=== PATIENT | male | born 1980 | race Hispanic/Latino ===

== ENCOUNTER 2021-05-14 23:55 | Emergency (ER) | payer BC ==
--- OUTSIDE RECORDS SUMMARY | 2021-05-14 23:57 | XMS REPORT | Continuity of Care Document ---
:1980 Author Organization [facility] t Address [address] [place] [address] [address]. [address] [place] [address] Care Team Providers Name Role Phone Adolfo Inman Attending Clinician Unavailable STORM Attending Clinician Unavailable MD ADOLFO INMAN Attending Clinician Unavailable DUARTE Attending Clinician Unavailable Adolfo Inman Admitting Clinician Unavailable STORM Admitting Clinician Unavailable MD ADOLFO INMAN Admitting Clinician Unavailable UNDEFINED Admitting Clinician Unavailable Payers Payer Name Policy Type Policy Number Effective Date Expiration Date S ource Problems This patient has no known problems. Allergies, Adverse Reactions, Alerts Allergy Allergy Status Severity Reaction(s) Onset Inactive Treating Comm ents Source Name Type Date Date Clinician No Known DA Active U [facility] Allergie 10-16 Clear s 00:00: Davis [address] [place] [address] Medications This patient has no known medications. Procedures This patient has no known procedures. Encounters Start End Encounter Admission Attending Care Care Encounter Source Date/Time Date/Time Type Type Clinicians Facility Department ID 2019-09-04 Inpatient Gist, [facility] [id number] [facility] 07:30:00 Ericka [id number] [facility] 2019-09-03 Inpatient EL Gist, [facility] SURG [id number] [facility] 13:00:00 Ericka [facility] 2020-06-18 2020-06-18 Outpatient GIST, [facility] [id number] [place] 00:00:00 00:00:00 ERICKA [facility] 2020-04-16 2020-04-16 Outpatient GIST, [facility] [id number] [place] 00:00:00 00:00:00 ERICKA [address] 2020-02-13 2020-02-13 Outpatient GIST, [facility] [id number] [place] 00:00:00 00:00:00 ERICKA [address] 2020-01-04 2020-01-04 Outpatient GIST, [place] [id number] [place] 00:00:00 00:00:00 ERICKA [address] 2019-12-31 2019-12-31 Outpatient GIST, [facility] [id number] [place] 00:00:00 00:00:00 ERICKA [address] 2019-09-04 2019-09-04 Outpatient Gist, [facility] LABO [id number] [facility] 18:21:00 18:21:00 Ericka [id number] [facility] 2019-08-28 2019-08-28 Outpatient GIST, [facility] [id number] [place] 00:00:00 00:00:00 ERICKA [address] 2019-08-13 2019-08-13 Outpatient GIST, [facility] [id number] [place] 00:00:00 00:00:00 ERICKA [address] 2019-04-17 2019-04-17 Outpatient DUARTE, KOLTON [facility] [id number] [place] 00:00:00 00:00:[address] 2019-04-17 2019-04-17 Outpatient DUARTE, K[place] [facility] [id number] [place] 00:00:00 00:00:[address] Results Test Description Test Time Test Comments Results Result Comments Source SARS-CoV-2 (COVID-19) RNA [Presence] in Respiratory sp ecimen by 2019-12-31 21:22:12 IFEANYI with probe detection Test Item Value Reference Range Interpretation Comme nts SARS-CoV-2 (COVID-19) RNA [Presence] in Respiratory Not detected No t-Detected specimen by IFEANYI with probe detection (test code = 21286-1) - XR SPINE 1 V SPEC [id number] 10:32:00 Patient Name: JULIO CRZU Unit No: [id number] EXAMS: CPT CODE: [id number] XR SPINE 1 V SPEC LEVEL 53357 3 LATERAL INTRAOPERATIVE VIEWS OF THE LUMBAR SPINE Film 1: Markers overlies the soft tissues posterior to L5-S1. Film 2: No problem loss the posterior elements at L5. Film 3: Metal probe overlies the L5 pedicle. at 1032 Reported and signed by: Hannah De Leon MD CC: Ericka Inman MD Technologist: JOSEPH GE (RT.R) [facility] NAME: JULIO CRUZ [address] [facility] PHYS: Ericka Amado MD : 1980 AGE: 39 SEX: M [place] [address] LOC: Y.DSU PHONE #: [phone] EXAM DATE: 09/04/2019 STATUS: [facility] FAX #: [phone] RAD #: D/C DT PAGE 1 Signed Report Patient Name: JULIO CRUZ Unit No: [id number] EXAMS: CPT CODE: [id number] XR SPINE 1 V SPEC LEVEL 21681 <Continued> Transcribed D/ (1032) t.SDR.GVG [facility] NAME: JULIO CRUZ [address] [facility] PHYS: Ericka Amado MD : 1980 AGE: 39 SEX: M [place] [address] LOC: Y.DSU PHONE #: [phone] EXAM DATE: 09/04/2019 STATUS: [facility] FAX #: [phone] RAD #: D/C DT PAGE 2 Signed Report- XR SPINE 1 V SPEC [id number] 10:32:00 Patient Name: JULIO CRUZ Unit No: [id number] EXAMS: CPT CODE: [id number] XR SPINE 1 V SPEC LEVEL 81021 3 LATERAL INTRAOPERATIVE VIEWS OF THE LUMBAR SPINE Film 1: Markers overlies the soft tissues posterior to L5-S1. Film 2: No problem loss the posterior elements at L5. Film 3: Metal probe overlies the L5 pedicle. at 1032 Reported and signed by: Hannah De Leon MD CC: Ericka Inman MD Technologist: EL TUTTLE RT(R) [facility] NAME: JULIO CRUZ [address] [facility] PHYS: Ericka Amado MD : 1980 AGE: 39 SEX: M [place] [address] LOC: Y.DSU PHONE #: [phone] EXAM DATE: 09/04/2019 STATUS: [facility] FAX #: [phone] RAD #: D/C DT PAGE 1 Signed Report Patient Name: JULIO CRUZ Unit No: [id number] EXAMS: CPT CODE: [id number] XR SPINE 1 V SPEC LEVEL 73502 <Continued> Transcribed D/ (1032) t.SDR.[facility] NAME: CRUZMATT BrownMO Kalani [address] [facility] PHYS: Ericka Amado MD : 1980 AGE: 39 SEX: M [place] [address] LOC: Y.DSU PHONE #: [phone] EXAM DATE: 09/04/2019 STATUS: [facility] FAX #: [phone] RAD #: D/C DT PAGE 2 Signed Report- XR SPINE 1 V SPEC [id number] 10:32:00 Patient Name: JULIO CRUZ Unit No: [id number] EXAMS: CPT CODE: [id number] XR SPINE 1 V SPEC LEVEL 12191 3 LATERAL INTRAOPERATIVE VIEWS OF THE LUMBAR SPINE Film 1: Markers overlies the soft tissues posterior to L5-S1. Film 2: No problem loss the posterior elements at L5. Film 3: Metal probe overlies the L5 pedicle. at 1032 Reported and signed by: Hannah De Leon MD CC: Ericka Inman MD Technologist: EL TUTTLE RT(R) Transcribed D/ (1032) [facility]: JULIO CRUZ [address] [facility] PHYS: STORMA Ericka Woodson MD : 1980 AGE: 39 SEX: M [place] [address] LOC: VIRA PHONE #: [phone] EXAM DATE: 09/04/2019 STATUS: [facility] FAX #: [phone] RAD #: D/C DT PAGE 1 Signed Report Patient Name: JULIO CRUZ Unit No: [id number] EXAMS: CPT CODE: [id number] XR SPINE 1 V SPEC LEVEL 88839 <Continued> Orig Print D/T: S: 09/05/2019 (1035) [facility] NAME: JULIO CRUZ [address] [facility] PHYS: Ericka Amado MD : 1980 AGE: 39 SEX: M [place] [address] LOC: VIRA PHONE #: [phone] EXAM DATE: 09/04/2019 STATUS: [facility] FAX #: [phone] RAD #: D/C DT PAGE 2 Signed Report
[2021-05-15 02:52] LABS: Absolute Lymphocytes (CBC) 3.2 K/uL (0.7-4.9); Hematocrit 41.5 % (39.6-49.0); MPV 8.5 fL (7.6-11.3); RBC Red Blood Cell Count 4.84 M/uL (4.33-5.43)
[2021-05-15 02:53] LABS: Protime INR 0.96
[2021-05-15 03:19] LABS: ALT/SGPT 65 U/L (12-78); AST/SGOT 30 U/L (15-37); Albumin 3.7 g/dL (3.4-5.0); Alkaline Phosphatase 59 U/L (45-117); BUN Blood Urea Nitrogen 18 mg/dL (7-18); Bicarbonate 25 mmol/L (21-32); Bilirubin Direct < 0.1 mg/dL (0-0.2); Bilirubin Total 0.7 mg/dL (0.2-1.0); Glucose Level 145 mg/dL (74-106); Magnesium 2.5 mg/dL (1.8-2.4); NT PRO-BNP 11 pg/mL (<125); Potassium 3.5 mmol/L (3.5-5.1); Protein, Total 7.4 g/dL (6.4-8.2); Sodium Level 141 mmol/L (136-145); Troponin (Emerg Dept Use Only) < 0.02 ng/mL (0.0-0.045)
--- NOTE | 2021-05-15 07:11 | ER ---
Nurse's Notes [facility] Name: Mathew Palmer Age: 40 yrs Sex: Male : 1980 Arrival Date: 05/14/2021 Time: 23:58 Bed Treatment Private MD: Diagnosis: Chest pain, unspecified;Headache Presentation: 05/15 01:47 Chief complaint: Patient states: he has been having chest pain for months tried to make bb appt with optical mechanic apprentice who told him to go to the ED pain has been worse the last few days. Coronavirus screen: At this time, the client does not indicate any symptoms associated with coronavirus-19. Ebola Screen: No symptoms or risks identified at this time. Initial Sepsis Screen: Does the patient meet any 2 criteria? No. Patient's initial sepsis screen is negative. Does the patient have a suspected source of infection? No. Patient's initial sepsis screen is negative. Risk Assessment: Do you want to hurt yourself or someone else? Patient reports no desire to harm self or others. Onset of symptoms is unknown. 01:47 Method Of Arrival: Ambulatory bb 01:47 Acuity: LONI 3 bb Triage Assessment: 01:47 General: Appears in no apparent distress. Behavior is calm, cooperative. Pain: bb Complains of pain in chest Pain currently is 4 out of 10 on a pain scale. Neuro: Level of Consciousness is awake, alert, obeys commands, Oriented to person, place, time, situation. Cardiovascular: Reports chest pain, Capillary refill < 3 seconds Patient's skin is warm and dry. Respiratory: Respiratory effort is even, unlabored, Respiratory pattern is regular. GI: No signs and/or symptoms were reported involving the gastrointestinal system. Derm: Skin is pink, warm \\T\\ dry. Musculoskeletal: Circulation, motion, and sensation intact. Historical: - PMHx: 07:44 chronic back pain; Headaches; al4 - Immunization history:: Adult Immunizations up to date, Client reports having NOT received the Covid vaccine. - Social history:: Smoking status: Reported history of juuling and/or vaping. Screenin:32 Abuse screen: Denies threats or abuse. Nutritional screening: No deficits noted. bb Tuberculosis screening: No symptoms or risk factors identified. Fall Risk None identified. Assessment: 02:32 Reassessment: No changes from previously documented assessment. Patient is alert, bb oriented x 3, equal unlabored respirations, skin warm/dry/pink. see triage assessment. 03:45 Reassessment: Patient is alert, oriented x 3, equal unlabored respirations, skin bb warm/dry/pink. 07:40 Pain: Pain does not radiate. Pain currently is 4 out of 10 on a pain scale. Quality of al4 pain is described as "tightness" Pain began gradually. 07:41 Reassessment: pt alert and oriented. pt states his pain is better than it was when he al4 came in and is currently at a 4/10. Patient was educated on discharge instructions, follow up, and diagnosis. patient states physician came to bedside and answered all questions. 07:47 Reassessment: initial AM assessment done by ANIL Alfaro. Discharged by ANIL Rojas. al4 Vital Signs: 01:47 BP 121 / 91; Pulse 72; Resp 16 S; Temp 98.2(O); Pulse Ox 100% on R/A; Weight 106.59 kg bb (R); Height 5 ft. 9 in. (175.26 cm) (R); Pain 4/10; 03:45 BP 119 / 76; Pulse 75; Resp 16 S; Temp 99.8(O); bb 07:24 BP 112 / 79; Pulse 67; Resp 18 S; Pulse Ox 97% on R/A; al4 01:47 Body Mass Index 34.70 (106.59 kg, 175.26 cm) ED Course: 05/14 23:58 Patient arrived in ED. ja2 05/15 01:47 Arm band placed on. bb 01:49 Triage completed. bb 02:31 Initial lab(s) drawn, by ne, sent to lab. EKG done, by ED staff. Inserted saline lock: bb 20 gauge in left hand, using aseptic technique. Blood collected. 02:32 Patient has correct armband on for positive identification. bb 02:32 Patient maintains SpO2 saturation greater than 95% on room air. bb 03:02 XRAY Chest (1 view) In Process Unspecified. EDMS 03:42 Cain Escobar MD is Attending Physician. 7 04:37 Inserted saline lock: 22 gauge in left forearm, using aseptic technique. ds4 05:11 CT Chest For PE Angio In Process Unspecified. EDMS 05:11 Head Brain Wo Cont CT In Process Unspecified. EDMS 07:30 Pulse ox on. NIBP on. al4 07:43 No provider procedures requiring assistance completed. IV discontinued, intact, al4 bleeding controlled, No redness/swelling at site. Pressure dressing applied. Administered Medications: No medications were administered Outcome: 07:10 Discharge ordered by . [facility] 07:43 Discharged to home ambulatory. al4 07:43 Condition: stable 07:43 Discharge instructions given to patient, family, Instructed on discharge instructions, follow up and referral plans. Demonstrated understanding of instructions, follow-up care. 07:49 Patient left the ED. al4 Signatures: Dispatcher [employer] Darlin Whiteside RN RN Serge Campos 4 Cain Escobar MD MD [facility] Yanely Burr Alexis al4 Corrections: (The following items were deleted from the chart) 07:48 07:46 Pain: Pain does not radiate. Pain began gradually, al4 al4
--- NOTE | 2021-05-15 07:11 | EDPHYS ---
[facility] Name: Mathew Palmer Age: 40 yrs Sex: Male : 1980 Arrival Date: 05/14/2021 Time: 23:58 Bed Treatment Private MD: ED Physician Cain Escobar HPI: 05/15 04:10 This 40 yrs old Male presents to ER via Ambulatory with complaints of Chest mh7 Pain, Numbness Of Arm, Headache. 04:12 The patient or guardian reports chest pain that is located primarily in the substernal mh7 area. The pain radiates to back. 04:13 Associated signs and symptoms: Pertinent positives: headache, Pertinent negatives: mh7 abdominal pain, cough, diaphoresis, dizziness, lower extremity pain, lower extremity swelling, lightheadedness, nausea, near syncope, palpitations, recent travel, shortness of breath, syncope, vomiting. The chest pain is described as a heaviness. Duration: The patient or guardian reports multiple episodes, that are intermittent, that wax and wane, with no pattern. Modifying factors: The symptoms are alleviated by nothing. the symptoms are aggravated by nothing. Severity of pain: At its worst the pain was moderate 3 day(s) ago, in the emergency department the pain has improved moderately. Historical: - PMHx: 07:44 chronic back pain; Headaches; al4 - Immunization history:: Adult Immunizations up to date, Client reports having NOT received the Covid vaccine. - Social history:: Smoking status: Reported history of juuling and/or vaping. ROS: 04:13 Constitutional: Negative for fever, chills, and weight loss, Eyes: Negative for injury, mh7 pain, redness, and discharge, ENT: Negative for injury, pain, and discharge, Neck: Negative for injury, pain, and swelling, Respiratory: Negative for shortness of breath, cough, wheezing, and pleuritic chest pain, Abdomen/GI: Negative for abdominal pain, nausea, vomiting, diarrhea, and constipation, : Negative for injury, bleeding, discharge, and swelling, MS/Extremity: Negative for injury and deformity, Skin: Negative for injury, rash, and discoloration, Psych: Negative for depression, anxiety, suicide ideation, homicidal ideation, and hallucinations. 04:13 Allergy/Immunology: Negative for hives, rash, and allergies, Endocrine: Negative for neck swelling, polydipsia, polyuria, polyphagia, and marked weight changes, Hematologic/Lymphatic: Negative for swollen nodes, abnormal bleeding, and unusual bruising. 04:13 Neuro: Negative for altered mental status, dizziness, gait disturbance, hearing loss, loss of consciousness, seizure activity, speech changes, syncope, near syncope, tinnitus, tremor, visual changes, weakness. Exam: 04:13 Constitutional: This is a well developed, well nourished patient who is awake, alert, mh7 and in no acute distress. Head/Face: Normocephalic, atraumatic. Eyes: Pupils equal round and reactive to light, extra-ocular motions intact. Lids and lashes normal. Conjunctiva and sclera are non-icteric and not injected. Cornea within normal limits. Periorbital areas with no swelling, redness, or edema. Neck: Trachea midline, no thyromegaly or masses palpated, and no cervical lymphadenopathy. Supple, full range of motion without nuchal rigidity, or vertebral point tenderness. No Meningismus. Chest/axilla: Normal chest wall appearance and motion. Nontender with no deformity. No lesions are appreciated. Cardiovascular: Regular rate and rhythm with a normal S1 and S2. No gallops, murmurs, or rubs. Normal PMI, no JVD. No pulse deficits. Respiratory: Lungs have equal breath sounds bilaterally, clear to auscultation and percussion. No rales, rhonchi or wheezes noted. No increased work of breathing, no retractions or nasal flaring. Abdomen/GI: Soft, non-tender, with normal bowel sounds. No distension or tympany. No guarding or rebound. No evidence of tenderness throughout. Back: No spinal tenderness. No costovertebral tenderness. Full range of motion. Skin: Warm, dry with normal turgor. Normal color with no rashes, no lesions, and no evidence of cellulitis. MS/ Extremity: Pulses equal, no cyanosis. Neurovascular intact. Full, normal range of motion. Neuro: Awake and alert, GCS 15, oriented to person, place, time, and situation. Cranial nerves II-XII grossly intact. Motor strength 5/5 in all extremities. Sensory grossly intact. Cerebellar exam normal. Normal gait. Psych: Awake, alert, with orientation to person, place and time. Behavior, mood, and affect are within normal limits. Vital Signs: 01:47 BP 121 / 91; Pulse 72; Resp 16 S; Temp 98.2(O); Pulse Ox 100% on R/A; Weight 106.59 kg bb (R); Height 5 ft. 9 in. (175.26 cm) (R); Pain 4/10; 03:45 BP 119 / 76; Pulse 75; Resp 16 S; Temp 99.8(O); bb 07:24 BP 112 / 79; Pulse 67; Resp 18 S; Pulse Ox 97% on R/A; al4 01:47 Body Mass Index 34.70 (106.59 kg, 175.26 cm) bb MDM: 07:08 Differential diagnosis: abnormal EKG, acute myocardial infarction, acute pericarditis, mh7 anxiety, coronary artery disease chest wall pain, congestive heart failure costochondritis, esophagitis, gastritis, gastroesophageal reflux disease (GERD), peptic ulcer disease, pericarditis, pneumonia, pneumothorax, pulmonary embolus, stable angina, thoracic aortic disection, unstable angina. HEART Score: History: Slightly Suspicious (0), ECG: Non specific repolarization disturbance / LBTB / PM (1), Age: < or = 45 years (0), Risk Factors: No Risk Factors Known (0), Troponin: < or = 1 x Normal Limit (0), Total Score = 1. Data reviewed: vital signs, nurses notes, lab test result(s), cardiac enzymes, CBC, electrolytes, EKG, radiologic studies, CT scan, plain films. Data interpreted: Pulse oximetry: on room air is 100 %. Interpretation: normal. Counseling: I had a detailed discussion with the patient and/or guardian regarding: the historical points, exam findings, and any diagnostic results supporting the discharge/admit diagnosis, lab results, radiology results, the need for outpatient follow up, to return to the emergency department if symptoms worsen or persist or if there are any questions or concerns that arise at home. Response to treatment: the patient's symptoms have resolved after treatment, the patient's blood pressure is in an acceptable range, mental status has returned to baseline, the patient no longer shows bradycardia, the patient is not short of breath, the patient is not tachycardic, the patient's pain is gone, the patient's temperature has normalized. 07:10 Patient medically screened. [facility] 05/15 02:30 Order name: Basic Metabolic Panel; Complete Time: 03:43 05/15 02:30 Order name: CBC with Diff; Complete Time: 03:43 05/15 02:30 Order name: LFT's; Complete Time: 03:43 05/15 02:30 Order name: Magnesium; Complete Time: 03:43 05/15 02:30 Order name: NT PRO-BNP; Complete Time: 03:43 05/15 02:30 Order name: PT-INR; Complete Time: 03:43 05/15 02:30 Order name: Troponin (emerg Dept Use Only); Complete Time: 03:43 05/15 02:30 Order name: XRAY Chest (1 view) 05/15 02:30 Order name: EKG; Complete Time: 02:31 05/15 04:10 Order name: CT Chest For PE Angio [facility] 05/15 04:10 Order name: CPK; Complete Time: 04:59 [facility] 05/15 04:11 Order name: Head Brain Wo Cont CT [facility] 05/15 05:34 Order name: Troponin (emerg Dept Use Only) [facility] 05/15 05:35 Order name: Troponin (Emerg Dept Use Only); Complete Time: 07:08 [facility]DA[facility] 05/15 02:30 Order name: EKG - Nurse/Tech; Complete Time: 02:30 05/15 02:30 Order name: IV Saline Lock; Complete Time: 02:30 05/15 02:30 Order name: Labs collected and sent; Complete Time: 02:31 05/15 02:30 Order name: O2 Per Protocol; Complete Time: 02:31 05/15 02:30 Order name: O2 Sat Monitoring; Complete Time: 02:31 bb Administered Medications: No medications were administered Disposition Summary: 05/15/21 07:10 Discharge Ordered Location: Home [facility] Problem: new [facility] Symptoms: have improved [facility] Condition: Stable [facility] Diagnosis - Chest pain, unspecified mh7 - Headache mh7 Followup: [facility] - With: Private Physician - When: 1 - 2 days - Reason: Worsening of condition, Recheck today's complaints, Continuance of care, Re-evaluation by your physician Discharge Instructions: - Discharge Summary Sheet 7 - General Headache Without Cause mh7 - Nonspecific Chest Pain, Adult, [id number] [facility] Forms: - Medication Reconciliation Form [facility] - Thank You Letter [facility] - Antibiotic Education [facility] - Prescription Opioid Use [facility] Signatures: Dispatcher [employer] Darlin Whiteside, ANIL RN Cain Santacruz MD MD [facility] Emil Peters
[2021-05-15 07:58] VITALS: TEMP 99.8
[2021-05-15 07:59] VITALS: BP 112/79; O2SAT 97
--- NOTE | 2021-05-15 19:16 | RAD REPORT ---
EXAM DESCRIPTION: CT - Head Brain Wo Cont - 05/15/2021 6:44 am CLINICAL HISTORY: Headache COMPARISON: CT Head/Brain Without Contrast 01/27/2017 images without report TECHNIQUE: Head/brain axial images acquired without contrast. Coronal and sagittal reformats created . Exam performed according to departmental dose-optimization program which includes automated exposur e control, adjustment of mA and/or kV according to patient size, and/or use of iterative reconstructi on technique. FINDINGS: No midline shift, mass effect, intracranial hemorrhage, or hydrocephalus. Brain parenchyma unremarkable. Small retrocerebellar midline fluid-density lesion likely represents arachnoid cyst. Paranasal sinuses clear. Mastoid air cells clear. No skull fracture. Metopic suture (normal variant). IMPRESSION: Unremarkable CT head/brain without contrast. Electronically signed by: Marcos Frey MD 05/15/2021 6:30 AM GANTRY CRANE OPERATOR Due to temporary technical issues with the PACS/Fluency reporting system, reports are being signed by the in house radiologists without review as a courtesy to insure prompt reporting. The interpreting radiologist is fully responsible for the content of the report.
--- NOTE | 2021-05-15 19:31 | RAD REPORT ---
EXAM DESCRIPTION: CT - Chest For Pe Angio - 05/15/2021 6:43 am CLINICAL HISTORY: Chest pain COMPARISON: Chest 1 View AP 05/15/2021 at 2:51 AM TECHNIQUE: Chest CTA axial images acquired with IV contrast. Coronal and sagittal CTA MIPs and MPRs created. Exam performed according to departmental dose-optimization program which includes automated exposure control, adjustment of mA and/or kV according to patient size, and/or use of iterative recon struction technique. FINDINGS: Heart size normal. No pericardial effusion. Thoracic aorta unremarkable without evidence of dissection, aneurysm, or atherosclerotic plaque. No evidence of pulmonary embolism. Central tracheobronchial tree unremarkable. Mild dependent atelectasis. No consolidation, lung mass, or significant pulmonary edema. No pleural effusion or pneumothorax. Bones unremarkable. IMPRESSION: Unremarkable CTA chest with contrast Electronically signed by: Marcos Frey MD 05/15/2021 6:36 AM IMAGING AIDE Due to temporary technical issues with the PACS/Fluency reporting system, reports are being signed by the in house radiologists without review as a courtesy to insure prompt reporting. The interpreting radiologist is fully responsible for the content of the report.
--- NOTE | 2021-05-15 21:18 | RAD REPORT ---
EXAM DESCRIPTION: Priyank Single View05/15/2021 3:03 am CLINICAL HISTORY: The patient is 40 years old and is Male; CHEST PAIN TECHNIQUE: Single view of the chest. COMPARISON: No relevant prior studies available. FINDINGS: Lungs: No pulmonary vascular congestion or consolidation. Pleural space: Unremarkable. No pneumothorax. Heart: Unremarkable. No cardiomegaly. Mediastinum: Unremarkable. Bones/joints: No acute fracture visualized. Previous right rotator cuff repair. Upper abdomen: No free air in the visualized upper abdomen. IMPRESSION: No acute cardiopulmonary process identified. Electronically signed by: Megha Bellamy MD 05/15/2021 4:52 AM TRAFFIC INSPECTOR Due to temporary technical issues with the PACS/Fluency reporting system, reports are being signed by the in house radiologists without review as a courtesy to insure prompt reporting. The interpreting radiologist is fully responsible for the content of the report.
== END 2021-05-15 07:49 | disposition home or self-care (01) ==
LOC: ER 23:55
DX: R07.9 Chest pain, unspecified (principal); R51.9 Headache, unspecified
CPT/HCPCS: 93005; 85025; 80048; 36415; 83735; 82550; 85610; 80076; 84484 ×2; 83880; 70450; 71275; 71045; 99284; Q9967